=== PATIENT | female | born 1935 | race African-American/Black ===

== ENCOUNTER 2018-01-19 19:20 | Emergency (ER) | payer MEDICAID, MEDICARE, OTHER ==
[2018-01-19] MEDS ORDERED: Sodium Chloride 0.9% 10 ML Syringe FLUSH PRN (19:34)
[2018-01-19] MEDS ORDERED: Sodium Chloride 0.9% 1,000 ML IV ONE (19:35)
[2018-01-19 20:27] LABS: CHLORIDE,CL 102 mmol/L (98-107); SODIUM,NA 137 mmol/L (136-145)
[2018-01-19 20:31] LABS: ANION GAP 14.8 mmol/L (10-20)
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
[2018-01-19] MEDS ORDERED: Morphine 2 MG/ML Syringe ONE (20:40)
[2018-01-19] MEDS ORDERED: Take Home: Nitrofurantoin Monohydrate/Macrocrystalline 100 MG, 2 Cap Pack PO ONE (21:57)
== END 2018-01-19 22:15 | disposition home or self-care (01) ==
LOC: VM.ED 19:20
DX: N30.00 Acute cystitis without hematuria (principal); V49.59XA Passenger injured in collision with other motor vehicles in traffic accident, initial encounter
CPT/HCPCS: 70450; 72125; 72128; 72131; 80053; 81001; 82550; 84484; 85025; 93005; 96365; 96366; 99285; A9270